=== PATIENT | male | born 1945 | race Caucasian/White ===

== ENCOUNTER 2024-09-16 11:47 | Outpatient (REF) | payer MEDICARE, SELFPAY ==
[2024-09-16 14:10] LABS: MANUAL DIFF FLAG NO
[2024-09-16 14:14] LABS: Basophils Absolute Auto 0.1 X10*3/uL (0.0-0.2); Basophils Percent Auto 0.7 % (0-2); Eosinophils Absolute Auto 0.3 X10*3/uL (0.0-0.4); Eosinophils Percent Auto 3.7 % (0-4); Hematocrit 44.5 % (42.0-52.0); Hemoglobin 14.3 g/dl (14.0-18.0); Imm Gran Abs Auto 0.02 X10*3/uL (0.00-0.03); Imm Gran Pct Auto 0.3 % (0.0-0.4); Lymphocytes Absolute Auto 1.9 X10*3/uL (1.2-4.9); Lymphocytes Percent Auto 26.1 % (20-40); Mean Corpuscular HGB Conc 32.1 g/dl (31.0-36.0); Mean Corpuscular Hemoglobin 28.9 pg (27.0-33.0); Mean Corpuscular Volume 89.9 fL (80.0-98.0); Mean Platelet Volume 9.8 fL (9.4-12.4); Monocytes Absolute Auto 0.6 X10*3/uL (0.1-1.2); Monocytes Percent Auto 8.2 % (2-11); Neutrophils Absolute Auto 4.3 x10*3/uL (2.0-8.3); Platelet Count 276 X10*3/uL (160-400); Red Blood Count 4.95 X10*6/uL (4.60-5.80); Red Cell Distribution Width 14.1 % (11.0-16.0); White Blood Count 7.1 X10*3/uL (4.8-10.8)
[2024-09-16 14:57] LABS: Alanine Aminotransferase 25 U/L (0-40); Albumin Level 4.2 g/dL (3.5-5.0); Alkaline Phosphatase 83 U/L (39-117); Anion Gap 10 (12-20); Aspartate Amino Transferase 26 U/L (5-37); Bilirubin Total 0.5 mg/dL (0.0-1.0); Blood Urea Nitrogen 16 mg/dL (9-16); Calcium 9.5 mg/dL (8.4-10.2); Carbon Dioxide 26 mmol/L (22-29); Chloride 110 mmol/L (96-108); Cholesterol 149 mg/dL (<200); Estimated Glomerular Filt Rate > 60; Glucose Random 95 mg/dL (60-115); HDL Cholesterol 49 mg/dL (>40); LDL Cholesterol Calculated 80 mg/dL (<100); Potassium 4.6 mmol/L (3.3-5.1); Sodium 141 mmol/L (135-145); Total Protein 6.9 g/dL (6.5-8.0); Triglycerides 103 mg/dL (<150)
[2024-09-16 14:59] LABS: TSH reflex Free T4 1.37 uIU/mL (0.32-4.0)
[2024-09-19 13:18] LABS: HCV Log PCR <1.18 NOT DETECTED Log IU/mL (NOT DETECTED); HepC Viral Load <15 NOT DETECTED IU/mL (NOT DETECTED)
== END 2024-09-16 11:48 | disposition home or self-care (01) ==
LOC: HO.CHCLDS 11:47
PROVIDERS: Visit Provider Internal Medicine
DX: I10 Essential (primary) hypertension (principal)
CPT/HCPCS: 36415; 80053; 80061; 84443; 85025; 87522

== ENCOUNTER 2024-09-21 13:45 | Outpatient (REF) | payer MEDICARE, SELFPAY ==
--- NOTE | ~2024-09-21 | XR_ITS ---
EXAMINATION: XR FACIAL BONES CLINICAL INFORMATION: Nose deformity COMPARISON: None available. TECHNIQUE: 3 views of the facial bones were obtained. FINDINGS: No acute cortical disruption. No lytic or blastic lesions. Mild S-shaped curvature of the nasal septum. Paranasal sinuses are pneumatized without air-fluid levels. XR/XR facial bones <3V IMPRESSION: No acute fracture, nasal bones. Mild S-shaped nasal septum configuration. Electronically signed by: Jimy Castillo MD 09/23/2024 08:10 AM JOSI
== END 2024-09-21 13:46 | disposition home or self-care (01) ==
LOC: HO.XRAY 13:45
PROVIDERS: PCP Internal Medicine; Visit Provider Internal Medicine
DX: M95.0 Acquired deformity of nose (principal)
CPT/HCPCS: 70140

== ENCOUNTER → 2024-09-21 13:52 | Outpatient (BNV) | payer MEDICARE, SELFPAY | PROVIDERS: PCP Internal Medicine; Visit Provider Radiology Diagnostic Radiology | DX: J34.2 Deviated nasal septum (principal) | CPT/HCPCS: 70140 ==

== ENCOUNTER → 2024-09-24 13:46 | Outpatient (REF) | payer MEDICARE, SELFPAY ==
--- NOTE | 2024-09-24 13:50 | CA_ITS ---
Transthoracic Echocardiogram Patient (Last, First, Middle): Destin Ramon, Gender: Male Date of : 1945 Age: 79 Procedure Date: 09/24/2024 Procedure Type: Transthoracic Echocardiogram Location: OP Height: 177. cm Weight: 107.96 kg BSA: 2.24 m2 Heart Rate: 75 bpm BP: 175 / 90 mmHg Area Attendant: ANAY Referring MD: Sol Goodman MD Symptoms: HTN,HX OF CKD Study Quality: Fair ECG Rhythm: Sinus Conclusions: - Normal left ventricular size and systolic function. There is mildly increased left ventricular wall thickness. The visually estimated ejection fraction is between 60-65%. - E/E prime ratio is between 8 and 15 consistent with indeterminate filling pressures. - The apical inferior segment is akinetic. - Normal right ventricular cavity size and systolic function. Findings Left Ventricle Normal left ventricular size and systolic function. There is mildly increased left ventricular wall thickness. The visually estimated ejection fraction is between 60-65%. There is evidence of regional wall motion abnormalities. Abnormal diastolic function is noted. Spectral Doppler is indicative of an impaired relaxation filling pattern. E/E prime ratio is between 8 and 15 consistent with indeterminate filling pressures. Wall Motion Rest Echo Findings The apical inferior segment is akinetic. Right Ventricle Normal right ventricular cavity size and systolic function. Atria The left atrium is normal in size. Aortic Valve There is a normal trileaflet aortic valve. There is mild calcification of the aortic valve. There is no aortic valve stenosis. There is no aortic valve regurgitation. Mitral Valve The mitral valve appears normal. There is no mitral valve regurgitation. There is no mitral valve stenosis. Pulmonic Valve The pulmonic valve is normal. There is no pulmonic valve regurgitation. Tricuspid Valve Normal tricuspid valve structure. There is no tricuspid valve regurgitation. Tricuspid regurgitation envelope is inadequate for calculation of right ventricular systolic pressure. Normal right atrial pressure. Great Vessels All visible segments of the aorta are normal in size. The visualized portions of the pulmonary artery and branches are normal. Venous The inferior vena cava is normal in size and collapses greater than 50% with inspiration. Pericardium/Pleural There is no evidence of pericardial effusion. Prior Study Comparison No prior study available for comparison. Measurements 2D Linear Measurements IVSd: 1.11 0.6-0.9/0.6-1.0 cm LVIDd: 4.87 3.9-5.3/4.2-5.9 cm LVIDd Index: 2.17 2.4-3.2/2.2-3.1 cm/m2 LVIDs: 2.64 2.0-3.6 cm LVPWd: 1.12 0.7-1.1 cm LA Diam: 4.30 2.7-3.8/3.0-4.0 cm LAIDs Index: 1.92 1.5-2.3 cm/m2 LV Mass: 252.11 67-162/88-224 g LV Mass Index: 112.55 43-95/49-115 g/m2 LVOT Diam: 2.30 3.0+(-)1.3 cm 2D Systolic Function EF 4C: 67.00 >55% EF 2C: 52.80 >55% EF BiP: 60.10 >55% Mitral Valve MV Pk E: 0.61 MV PK A: 1.08 MV Decel Time: 282.00 E/A: 0.60 E'Lateral: 6.85 E'Medial: 4.90 E/E' Med: 12.50 E/E' Lat: 8.90 PHT: 83.00 MVA PHT: 2.65 Decel Rock: 2.17 Aortic Valve AoV Pk Rosendo: 1.45 AoV Mn Rosendo: 1.08 AoV VTI: 0.33 AoV Pk Grad: 8.00 Aov Mn Grad: 5.00 MELISSA Cont.VTI: 2.75 LVOT LVOT Pk Rosendo: 1.04 LVOT Mn Rosendo: 0.65 LVOT VTI: 0.22 LVOT Pk Grad: 4.00 LVOT Mn Grad: 2.00 LVOT Diam: 2.30 LVOT Area: 4.15 Diastolic Function MV Pk E: 0.61 MV Pk A: 1.08 E/A: 0.60 E'Medial: 4.90 E/E' Med: 12.50 E' Laterial: 6.85 E/E' Lat: 8.90 Right Ventricle TAPSE (mm): 24.40 TVS' Rosendo: 15.60 Tricuspid Valve RA Press: 8.00 Great Vessels Aorta Sinus of Valsalva: 2.90 2.0-3.5 cm Ao Asc: 3.30 2.1-3.4 cm Pulmonary Valve PV Pk Rosendo: 0.92 Peak PV Grad: 3.00 Updated in Other Vendor System with Status of Final Scott Stevenson MD electronically signed on 09/25/2024 5:52:51 PM with status of Final
== END ==
LOC: HO.CARD 13:46
PROVIDERS: PCP Internal Medicine; Visit Provider Internal Medicine
DX: I10 Essential (primary) hypertension (principal); I25.10 Atherosclerotic heart disease of native coronary artery without angina pectoris
CPT/HCPCS: 93306

== ENCOUNTER → 2024-09-24 13:50 | Outpatient (BNV) | payer MEDICARE, SELFPAY | PROVIDERS: PCP Internal Medicine; Visit Provider Internal Medicine Cardiovascular Disease | DX: I35.8 Other nonrheumatic aortic valve disorders (principal); I51.89 Other ill-defined heart diseases | CPT/HCPCS: 93306 ==

== ENCOUNTER 2024-10-15 10:12 | Outpatient (REF) | payer MEDICARE, SELFPAY ==
--- OUTSIDE RECORDS SUMMARY | 2024-10-15 11:06 | XMS_ITS | Encounter Summary ---
Author Organization [employer] Address [address] [facility] [address] [place] [address] Care Team Providers Care Director River [employer]oration Name Role Phone Sol Goodman MD Primary Care Provider [phone] Encounter Details Date Type Department Care Team ([facility] Contact Info) Description 10/15/2024 Orders Only [facility] MED & PEDS [address], [place] [phone] Sol Goodman MD [address] [place] [address] Primary hypertension (Primary Dx) Social History Tobacco Use Types Packs/Day Years Used Date Smoking Tobacco: Never Assessed Sex and Gender Information Value Date Recorded Sex Assigned at Male 07/08/2022 10:34 AM EDT Legal Sex Male 10:34 AM EDT Gender Identity Male 07/08/2022 10:34 AM EDT Sexual Orientation Straight 07/08/2022 10 :34 AM EDT documented as of this encounter Plan of Treatment Upcoming Encounters Date Type Department Care Team ([facility] Contact Info) Description 10/18/2024 11:15 AM EST Clinical Support [facility] [address] [place] [address] Scheduled Orders Name Type Priority Associated Diagnoses Orde r Schedule Comprehensive Metabolic Panel Lab Routine Primary hypertension Expected: 10/15/2024 (Approximate), Expires: 10/15/2025 documented as of this encounter Visit Diagnoses Diagnosis Primary hypertension- Primary Unspecified essential hypertension documented in this encounter Care Teams Director [employer] Relationship Specialty Start Date End Date Sol Goodman MD [address] [place] [address] PCP - General Internal Medicine 09/03/18 documented as of this encounter
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
--- OUTSIDE RECORDS SUMMARY | 2024-10-15 11:06 | XMS_ITS | Clinical Summary ---
Author Organization [employer] Address [address] [place] [address] Care Team Providers Care Body Shop Manager Name Role Phone Sol Goodman MD Primary Care Provider [phone]- [phone] Allergies No known active allergies Medications lisinopril 5 MG tabletIndication s:Essential (primary) hypertension TAKE ONE TABLET BY MOUTH EVERY DAY 30 tablet 5 12/20/19 23 Active carvedilol (Coreg) 6.25 MG tablet Take 6.25 mg by mouth 2 times daily. Active predniSONE (Deltasone) 20 MG tablet TAKE THREE TABLETS ONCE DAILY FOR SEVEN DAYS 21 tablet 09/16/19 25 Active valACYclovir (Valtrex) 1 g tablet TAKE ONE TABLET THREE TIMES DAILY FOR SEVEN DAYS 21 tablet 09/16/19 25 Active predniSONE (Deltasone) 20 MG tablet Take 3 tabs orally daily for 7 days 21 tablet 08/12/20 24 025 Discontinued valACYclovir (Valtrex) 1 g tablet Take 1 tablet (1,000 mg) by mouth 3 times daily for 7 days. 21 tablet 08/12/20 24 025 Discontinued Active Problems Problem Noted Date Diagnosed Date Chronic kidney disease 04/21/2024 Dyslipidemia 04/21/2024 Gout 04/21/2024 Hypertensive disorder 04/21/2024 Obesity 04/21/2024 Coronary arteriosclerosis 11/19/2017 Benign essential hypertension 09/05/2011 Encounters Date Type Department Care Team Description 10/15/2024 Orders Only [facility] [address] [place] [address] Sol Goodman MD Primary hypertension (Primary Dx) 09/29/2024 Telephone [facility] [address] [place] [address] Sol Goodman MD Appointment Confirmation 09/28/2024 Telephone [facility] [address] [place] [address] Ynes Coto RN 09/24/2024 Orders Only [facility] [address] [place] [address] Sol Goodman MD Nose deformity (Primary Dx) 09/16/2024 10:45 AM EST Office Visit [facility] [address] [place] [address] Sol Goodman MD Primary hypertension (Primary Dx); Facial palsy; Coronary arteriosclerosis; Chronic kidney disease, unspecified CKD stage; Nose deformity; Encounter for immunization 09/16/2024 Refill [facility] [address] [place] [address] Belinda Wilde MD 09/16/2024 Travel 08/17/2024 Telephone [employer] [address] [place] [address] Belinda Wilde MD 08/12/2024 3:20 PM EST Office Visit [facility] [address] [place] [address] Belinda Wilde MD Primary hypertension (Primary Dx); Facial palsy 08/12/2024 Travel 08/10/2024 Telephone [facility] [address] [place] [address] Sol Goodman MD ER Follow-up; Referral 08/10/2024 Telephone [facility] [address] [place] [address] Sol Goodman MD ER Follow-up 08/10/2024 Travel from Last 3 Months Immunizations Name Administration Dates Next Due Influenza, High Dose Seasonal, Preservative Free 09/16/2024 Moderna Covid-19 Vaccine 12+ 11/21/2020,10/24/19 21 Pneumococcal Conjugate PCV 20 02/28/2022 Tdap 02/28/2022 Zoster, Recombinant 05/06/2022,02/28/2022 Social History Tobacco Use Types Packs/Day Years Used Date Smoking Tobacco: Never Assessed Sex and Gender Information Value Date Recorded Sex Assigned at Male 07/08/2022 10:34 AM EDT Legal Sex Male 10:34 AM EDT Gender Identity Male 07/08/2022 10:34 AM EDT Sexual Orientation Straight 07/08/2022 10 :34 AM EDT Last Filed Vital Signs Vital Sign Reading [...] Mass Index 35.01 09/16/2024 10:44 AM EST Plan of Treatment Upcoming Encounters Date Type Department Care Team (Late st Contact Info) Description 10/18/2024 11:15 AM EST Clinical Support [facility] [address] [place] [address] Health Maintenance Due Date Last Done Comments Depression Screening 1945 SDOH Screening 1945 Alcohol/Substance Use Screening 1957 Tobacco Screening 1957 RSV Patients and Patients Aged 60 years or older (1 - 1-dose 75+ series) 01/26/2020 COVID-19 Vaccine (3 - 2023-2 5 season) 2024 11/21/2020, 10/24/2020 Lipid Panel 09/16/2029 09/16/2024, 02/26/2022 DTaP/Tdap/Td Vaccines (2 - T d or Tdap) 02/29/2032 02/28/2022 Pneumococcal Vaccine: 50+ Years Completed 02/28/2022 Zoster Vaccines Completed 05/06/2022, 02/28/2022 Hepatitis C Screening Completed 09/16/2024 Influenza Vaccine Completed 09/16/2024 HIB Vaccines Aged Out No longer eligi ble based on patient's age to complete this topic HPV Vaccines Aged Out No longer eligi ble based on patient's age to complete this topic Hepatitis A Vaccines Aged Out No long er eligible based on patient's age to complete this topic Hepatitis B Vaccines Aged Out No long er eligible based on patient's age to complete this topic IPV Vaccines Aged Out No longer eligi ble based on patient's age to complete this topic Meningococcal Vaccine Aged Out No jerry tila eligible based on patient's age to complete this topic RSV under 20 months Aged Out No longe r eligible based on patient's age to complete this topic Rotavirus Vaccines Aged Out No longer eligible based on patient's age to complete this topic Procedures Procedure Name Priority Date/Time Associated Diagnosis Comments AMB REFERRAL TO NEUROLOGY Routine 10/06/2024 Primary hypertension Facial palsy XR FACIAL BONES 1-2 VIEWS Routine 09/21/2024 2:32 PM EST Nose deformity COMPREHENSIVE METABOLIC PANEL Routine 09/16/2024 11:50 AM EST Primary hypertension TSH W/REFLEX TO FT4 Routine 09/16/2024 1 1:50 AM EST Primary hypertension HEPATITIS C VIRAL RNA, QUANTITATIVE, REAL-TIME PCR Routine 09/16/2024 11:50 AM EST Primary hypertension LIPID PANEL, STANDARD Routine 09/16/2024 11:50 AM EST Primary hypertension CBC WITH AUTO DIFFERENTIAL Routine 09/16/2024 11:50 AM EST Primary hypertension from Last 3 Months Results * Referral to Neurology (10/06/2024) us Belinda Wilde MD OUTPATIENT REFERRAL ORDERABLE S Final Result * XR Facial Bones 1-2 Views (09/21/2024 2:32 PM EST) Anatomical Region Laterality Modality Head, Neck, Facial bones Radiogr aphic Imaging 09/21/2024 2:32 PM EST Narrative 09/23/2024 8:13 AM EST ? [facility] ?[address] ?[place] [address] ?XRay Report ? Signed ? Patient: Porzuczek,Edward ?MR#: [id number] ?? [id number] ? : 1945 ?Acct:[id number] ? Age/Sex: 79 / M ?ADM Date: 09/21/24 ? Loc: HO.XRAY ? Attending Dr: Sol Goodman MD ? Ordering Physician: Sol Goodman MD ?? Date of Service: 09/21/24 ?? Procedure(s): XR facial bones <3V ?? Accession Number(s): [id number] ? cc: Sol Goodman MD ? EXAMINATION: [...] DD/ 1432 ? TD/TT: 09/21/24 1442 ? Glassware Maker: ? Procedure Note Aide, Image - 09/23/[address] [address] XRay Report Signed Patient: Destin RamonMR#: [id number] : 5Acct:[id number] Age/Sex: 79 / MADM Date: 09/21/24 Loc: [facility] Attending Dr: Sol Goodman MD Ordering Physician: Sol Goodman MD Date of Service: 09/21/24 Procedure(s): XR facial bones <3V Accession Number(s): [id number] cc: Sol Goodman MD EXAMINATION: XR FACIAL [...] Jimy Castillo MD 09/23/2024 08:10 AM EST RP Dictated By: Jimy Blackburn MD Signed By: <Electronically signed by Jimy Fraser MDin OV> 09/23/24 0810 DD/ 1432 TD/TT: 09/21/24 1442 Glassware Maker: us Sol Goodman MD IMG XR PROCEDURES Edited Re sult - Final * TSH W/Reflex to FT4 (09/16/2024 11:50 AM EST) TSH reflex Free T4 1.37 0.32 - 4.0 uIU/mL [facility] Blood Venous blood specimen / Unknown 09/16/2024 11:50 AM EST 09/16/2024 2:07 PM EST us Sol Goodman MD LAB BLOOD ORDERABLES Final Result [facility] [address] [place] [phone] * Hepatitis C Viral RNA, Quantitative, Real-Time PCR (09/16/2024 11:50 AM EST) Hepatitis C Viral Load <15 NOT DETECTED NOT DETECTED IU/mL [facility] HCV Log PCR <1.18 NOT DETECTED NOT DETECTED Log IU/mL [facility] Comment:For additional infor mation, please refer [email or web address](This link is being provided for informational/educational purposes only.)THIS TEST WAS PERFORMED AT:[facility] [place] [phone] MOROCHO MD Blood Venous blood specimen / Unknown 09/16/2024 11:50 AM EST 09/16/2024 2:07 PM EST us Sol Goodman MD LAB BLOOD ORDERABLES Final Result [facility] [address] [place] [phone] * CBC auto differential (09/16/2024 11:50 AM EST) White Blood Count 7.1 4.8 - 10.8 X10*3/uL [facility] Red Blood Count 4.95 4.60 - 5.80 X10*6/uL [facility] Hemoglobin 14.3 14.0 - 18.0 g/dl [facility] Hematocrit 44.5 42.0 - 52.0 % [facility] Mean Corpuscular Volume 89.9 80.0 - 98.0 fL [facility] Mean Corpuscular Hemoglobin 28.9 27.0 - 33.0 pg [facility] Mean Corpuscular HGB Conc 32.1 31.0 - 36.0 g/dl [facility] Red Cell Distribution Width 14.1 11.0 - 16.0 % [facility] Platelet Count 276 160 - 400 X10*3/uL [facility] Mean Platelet Volume 9.8 9.4 - 12.4 fL [facility] Neutrophils Percent Auto 61.0 45 - 73 % [facility] Imm Gran Pct Auto 0.3 0.0 - 0.4 % [facility] Lymphocytes Percent Auto 26.1 20 - 40 % [facility] Monocytes Percent Auto 8.2 2 - 11 % [facility] Eosinophils Percent Auto 3.7 0 - 4 % [facility] Basophils Percent Auto 0.7 0 - 2 % [facility] NRBC Pct Auto 0.0 0.0 - 0.2 /100WBC [facility] Neutrophils Absolute Auto 4.3 2.0 - 8.3 x10*3/uL [facility] Imm Gran Abs Auto 0.02 0.00 - 0.03 X10*3/uL [facility] Lymphocytes Absolute Auto 1.9 1.2 - 4.9 X10*3/uL [facility] Monocytes Absolute Auto 0.6 0.1 - 1.2 X10*3/uL [facility] Eosinophils Absolute Auto 0.3 0.0 - 0.4 X10*3/uL [facility] Basophils Absolute Auto 0.1 0.0 - 0.2 X10*3/uL [facility] NRBC Abs Auto 0.000 0.0 - 0.012 X10*3/uL [facility] Blood Venous blood specimen / Unknown 09/16/2024 11:50 AM EST 09/16/2024 2:07 PM EST us Sol Goodman MD LAB BLOOD ORDERABLES Final Result [facility] [address] [place] [phone] * Lipid Panel, Standard (09/16/2024 11:50 AM EST) Triglycerides 103 <150 mg/dL [facility] Comment:Desirable Triglyceri de: less than 150 mg/dLBorderline High Triglyceride 150-199 mg/dLHigh Triglyceride: 200-499 mg/dLVery High Triglyceride: greater than or equal to 5OO mg/dL Cholesterol 149 <200 mg/dL [facility] Comment:Desirable Cholestero l: less than 200 mg/dLBorderline High Cholesterol: 200-239 mg/dLHigh Cholesterol: greater than 239 mg/dL LDL Cholesterol Calculated 80 <100 mg/dL [facility] Comment:Desirable LDL: less than 100 mg/dLNear Optimal/Above Optimal LDL: 110- 129 mg/dLBorderline High LDL: 130-159 mg/dLHigh LDL: 160-189 mg/dLVery High LDL: greater than or equal to 190 mg/dL HDL Cholesterol 49 >40 mg/dL [facility] Comment:Desirable HDL: great er than 40 mg/dL Note: This HDL assay may give artificially low results in patients with liver disease. Blood Venous blood specimen / Unknown 09/16/2024 11:50 AM EST 09/16/2024 2:07 PM EST us Sol Goodman MD LAB BLOOD ORDERABLES Final Result [facility] [address] [place] [phone] * (ABNORMAL) Comprehensive Metabolic Panel (09/16/2024 11:50 AM EST) Sodium 141 135 - 145 mmol/L [facility] Potassium 4.6 3.3 - 5.1 mmol/L [facility] Chloride 110(H) 96 - 108 mmol/L [facility] Carbon Dioxide 26 22 - 29 mmol/L [facility] Anion Gap 10(L) 12 - 20 [facility] Urea Nitrogen (BUN) 16 9 - 16 mg/dL [facility] Creatinine, Serum 1.07 0.5 - 1.4 mg/dL [facility] Estimated Glomerular Filt Rate >60 [facility] Comment:Chronic Kidney Disea se: Estimated GFR < 60 mL/min/1.72q6Agkkoc Kidney Disease: Estimated GFR < 15 mL/min/1.73m2 Glucose 95 60 - 115 mg/dL [facility] Calcium 9.5 8.4 - 10.2 mg/dL [facility] Bilirubin, Total 0.5 0.0 - 1.0 mg/dL [facility] Aspartate Amino Transferase 26 5 - 37 U/L [facility] Alanine Aminotransferase 25 0 - 40 U/L [facility] Total Protein 6.9 6.5 - 8.0 g/dL [facility] Albumin Level 4.2 3.5 - 5.0 g/dL [facility] Alkaline Phosphatase 83 39 - 117 U/L [facility] Blood Venous blood specimen / Unknown 09/16/2024 11:50 AM EST 09/16/2024 2:07 PM EST us Sol Goodman MD LAB BLOOD ORDERABLES Final Result [facility] [address] [place] [phone] from Last 3 Months Insurance [employer] PPO HS FULL Care Teams Body Shop Manager Relationship Specialty Start Date End Date Sol Goodman MD [address] [place] [phone] PCP - General Internal Medicine 09/03/18
--- OUTSIDE RECORDS SUMMARY | 2024-10-15 11:06 | XMS_ITS | Encounter Summary ---
Author Organization [employer] Address [address] [facility] 7[address] [place] [address] Care Team Providers Care Retanned Leather Roller Name Role Phone Sol Goodman MD Primary Care Provider +1- [phone] Encounter Details Date Type Department Care Team (Latest Contact Info) Description 09/16/2024 Travel Social History Tobacco Use Types Packs/Day Years [...] 11:15 AM EST Clinical Support [facility] [address] [place] [address] documented as of this encounter Visit Diagnoses Not on filedocumented in this encounter Care Teams Retanned Leather Roller Relationship Specialty Start Date End Date Sol Goodman MD [address] [place] [address] PCP - General Internal Medicine 09/03/18 documented as of this encounter
--- OUTSIDE RECORDS SUMMARY | 2024-10-15 11:06 | XMS_ITS | Encounter Summary ---
Author Organization [employer] [facility] Address [address] [facility] [address] [place] [address] Care Team Providers Care Securities Lending Trader Name Role Phone Sol Goodman MD Primary Care Provider +1- [phone] Reason for Visit * Reason Comments Med Refill Encounter Details Date Type Department Care Team (Late Contact Info) Description 09/16/2024 Refill [facility] [address] [place] [address] Belinda Wilde MD [address] [place] [address] Social History Tobacco Use Types Packs/Day Years [...] Encounters Date Type Department Care Team (Late Contact Info) Description 10/18/2024 11:15 AM EST Clinical Support [facility] [address] [place] [address] documented as of this encounter Visit Diagnoses Not on filedocumented in this encounter Care Teams Securities Lending Trader Relationship Specialty Start Date End Date Sol Goodman MD [address] [place] [address] PCP - General Internal Medicine 09/03/18 documented as of this encounter
--- OUTSIDE RECORDS SUMMARY | 2024-10-15 11:06 | XMS_ITS | Encounter Summary ---
Author Organization [employer] Address [address] [facility] 7[address] [place] [address] Care Team Providers Care Projector Booth Operator Name Role Phone Sol Goodman MD Primary Care Provider [phone]- [phone] Reason for Visit * Reason Onset Date Comments Appointment Confirmation 09/29/2024 Encounter Details Date Type Department Care Team ([facility] st Contact Info) Description 09/29/2024 Telephone [facility] [address] [place] [address] Sol Goodman MD [address] [place] [address] Appointment Confirmation Social History Tobacco Use Types Packs/Day Years Used Date Smoking Tobacco: Never Assessed Sex and Gender Information Value Date Recorded Sex Assigned at Male 07/08/2022 10:34 AM EDT Legal Sex Male 10:34 AM EDT Gender Identity Male 07/08/2022 10:34 AM EDT Sexual Orientation Straight 07/08/2022 10 :34 AM EDT documented as of this encounter Miscellaneous Notes * Telephone Encounter - Gisella Alejo RN - 09/29/2024 1:26 PM EST Images from the original note were not included. TC placed to pt to advise of echocardiogram results below below. Pt informed of the thickening of the wall of the ventricles and that a f/u with [facility] was recommended by Dr. Hill. Ptgiven the number for [facility] to call and schedule a f/u appt. Pt stated understanding of these instructions and had no further questions. MD Karl Bolaños [facility] Nurses The echocardiogram result was reviewed. Patient has some thickening of the wall of his ventricle with some areas that are not moving the way they should. He needs to keep his scheduled appointment with cardiology as recommended at the last visit. * Telephone Encounter - Ian Harrell - 09/29/2024 10:49 AM EST Tc from pt returning call stating that he was on the call and it disconnected. * Telephone Encounter - Jessica Valenzuela RN - 09/29/2024 10:30 AM EST Images from the original note were not included. MD Karl Bolaños [facility] P[facility] Nurses The echocardiogram result was reviewed. Patient has some thickening of the wall of his ventricle with some areas that are not moving the way they should. He needs to keep his scheduled appointment with cardiology as recommended at the last visit. TC placed to pt to discuss message above, message left for pt to follow up with cards and contact [facility] with any further questions documented in this encounter Plan of Treatment Upcoming Encounters Date Type Department Care Team (Late st Contact Info) Description 10/18/2024 11:15 AM EST Clinical Support [facility] [address] [place] [address] documented as of this encounter Visit Diagnoses Not on filedocumented in this encounter Care Teams Projector Booth Operator Relationship Specialty Start Date End Date Sol Goodman MD [address] [place] [address] PCP - General Internal Medicine 09/03/18 documented as of this encounter
--- OUTSIDE RECORDS SUMMARY | 2024-10-15 11:06 | XMS_ITS | Encounter Summary ---
Author Organization [employer] Address [address] [place] [address] Care Team Providers Care Haul Cane Brakeman Name Role Phone Sol Goodman MD Primary Care Provider [phone] [phone] Encounter Details Date Type Department Care Team (Late st Contact Info) Description 09/28/2024 Telephone [facility] [address] [place] [address] Ynes Coto RN Social History Tobacco Use Types Packs/Day Years Used Date Smoking Tobacco: Never Assessed Sex and Gender Information Value Date Recorded Sex Assigned at Male 07/08/2022 10:34 AM EDT Legal Sex Male 10:34 AM EDT Gender Identity Male 07/08/2022 10:34 AM EDT Sexual Orientation Straight 07/08/2022 10 :34 AM EDT documented as of this encounter Miscellaneous Notes * Telephone Encounter - Ynes Coto RN - 09/28/2024 10:13 AM EST to [facility] wrist hemmer id: [id number] to let them know per PCP Please call to report the result of the x-ray. 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 Pt verbalized understanding and no further questions or concerns at this time. * Telephone Encounter - Ynes Coto RN - 09/28/2024 10:13 AM EST ----- Message from Sol Goodman MD sent at 09/24/2024 11:11 AM EST ----- Please call to report the result of the x-ray. 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 and needs an evaluation by ENT given his history of nasal congestion ----- Message ----- From: Interface, Ris Results In Sent: 09/23/2024 8:13 AM EST To: Sol Goodman MD documented in this encounter Plan of Treatment Upcoming Encounters Date Type Department Care Team (Late st Contact Info) Description 10/18/2024 11:15 AM EST Clinical Support [facility] [address] [place], [place] [phone] documented as of this encounter Visit Diagnoses Not on filedocumented in this encounter Care Teams Haul Cane Brakeman Relationship Specialty Start Date End Date Sol Goodman MD [address] [place], [place] [phone] PCP - General Internal Medicine 09/03/18 documented as of this encounter
--- OUTSIDE RECORDS SUMMARY | 2024-10-15 11:06 | XMS_ITS | Encounter Summary ---
Author Organization [employer] Address [address] [facility] [address] [place] [address] Care Team Providers Care Outside Parts Salesman Name Role Phone Sol Goodman MD Primary Care Provider [phone]- [phone] Reason for Referral * Consultation (Routine) - Canceled Specialty Diagnoses / Procedures Referred By Elif chen Referred To Contact Otolaryngology Diagnoses Nose deformity Sol Goodman MD [address] [place] [address] Phone: tel: fax: Referral ID Status Reason Start Date Expiration Date Visits Requested Visits Authorized [id number] Canceled Specialty Services Required 09/24/2024 09/24/2025 1 1 Encounter Details Date Type Department Care Team ([facility] Contact Info) Description 09/24/2024 Orders Only [facility] [address] [place] [address] Sol Goodman MD [address] [place] [address] Nose deformity (Primary Dx) Social History Tobacco Use Types [...] Description 10/18/2024 11:15 AM EST Clinical Support [facility] [address] [place] [address] Scheduled Referrals Name Type Priority Associated Diagnoses Orde r Schedule Referral to ENT Outpatient Referral Routine Nose deformity Expected: 09/24/2024 (Approximate), Expires: 09/24/2025 documented as of this encounter Visit Diagnoses Diagnosis Nose deformity- Primary Acquired deformity of nose documented in this encounter Care Teams Outside Parts Salesman Relationship Specialty Start Date End Date Sol Goodman MD [address] [place] [address] PCP - General Internal Medicine 09/03/18 documented as of this encounter
[2024-10-15 15:03] LABS: Alanine Aminotransferase 20 U/L (0-40); Albumin Level 3.7 g/dL (3.5-5.0); Alkaline Phosphatase 81 U/L (39-117); Anion Gap 16 (12-20); Aspartate Amino Transferase 37 U/L (5-37); Bilirubin Total 0.3 mg/dL (0.0-1.0); Blood Urea Nitrogen 19 mg/dL (9-16); Calcium 9.9 mg/dL (8.4-10.2); Carbon Dioxide 24 mmol/L (22-29); Chloride 106 mmol/L (96-108); Estimated Glomerular Filt Rate > 60; Glucose Random 96 mg/dL (60-115); Potassium 5.7 mmol/L (3.3-5.1); Sodium 140 mmol/L (135-145); Total Protein 7.6 g/dL (6.5-8.0)
== END 2024-10-15 10:13 | disposition home or self-care (01) ==
LOC: HO.CHCLDS 10:12
PROVIDERS: Visit Provider Internal Medicine
DX: I10 Essential (primary) hypertension (principal)
CPT/HCPCS: 36415; 80053